=== PATIENT | female | born 1970 | race Two or more races ===

== ENCOUNTER 2021-04-21 20:53 | Emergency (ER) | payer OTHER ==
[~2021-04-21] VITALS: Ht 160 cm; Wt 100.2 kg
[2021-04-21] MEDS ORDERED: IOHEXOL 300MG/ML 100 ML INFUS..BTL IV ONE (21:07)
[2021-04-21 22:00] LABS: *BILIRUBIN,URIN NEGATIVE (NEGATIVE); *BLOOD, URINE 2+ (NEGATIVE); *CLARITY,URINE SLIGHTLY CLOUDY (CLEAR); *COLOR,URINE YELLOW (YELLOW); *KETONES,URINE NEGATIVE (NEGATIVE); *URINE HCG, QUAL NEGATIVE (NEGATIVE); *UROBILINOGEN,URINE 0.2 E.U./dl (NORMAL); LEUKOCYTE ESTERASE ,URINE TRACE (NEGATIVE); NITRITE, URINE NEGATIVE (NEGATIVE); PH,URINE 6.5 (5.0-8.0); UGLUCOSE NEGATIVE (NEGATIVE)
[2021-04-21] MEDS ORDERED: HYDROMORPHONE 1 MG/1 ML DISP.SYRIN IV ONE (22:00)
[2021-04-21] MEDS ORDERED: ONDANSETRON 4 MG/2 ML VIAL IV ONE (22:00)
[2021-04-21 22:07] LABS: BACTERIA,URINE NONE SEEN /HPF (NONE SEEN); CYSTINE CRYSTALS,URINE FEW /HPF (NONE SEEN); SQUAMOUS EPITHELIAL CELL,UR MODERATE /HPF (NONE SEEN); URINE AMORPHOUS URATE FEW /HPF
[2021-04-21 22:16] LABS: HEMATOCRIT 36.8 % (31.2-41.9); MEAN CORPUSCULAR HEMOGLOBIN 28.1 uug (24.7-32.8); MEAN CORPUSCULAR VOLUME 84.7 fL (75.5-95.3); PLATELET COUNT (AUTO) 284 K/uL (179-408)
[2021-04-21 22:17] LABS: CREATININE 0.9 mg/dL (0.6-1.3); POTASSIUM 3.8 mmol/L (3.5-5.1)
[2021-04-21 22:27] LABS: BILIRUBIN,DIRECT 0.1 mg/dL (0.0-0.2); BILIRUBIN,TOTAL 0.2 mg/dL (0.2-1.0)
[2021-04-21] MEDS ORDERED: SWABABLE VALVE TRANSFER SET EA MC ONE (23:03)
[2021-04-21] MEDS ORDERED: IV NORMAL SALINE 250 ML IV ONE (23:03)
[2021-04-21] MEDS ORDERED: ONDANSETRON 4 MG/2 ML VIAL ONE (23:36)
[2021-04-21] MEDS ORDERED: HYDROMORPHONE 1 MG/1 ML DISP.SYRIN ONE (23:37)
[2021-04-22] MEDS ORDERED: levoFLOXacin 750 MG/D5W 150 ML PIGGYBACK IV ONE (01:00)
[2021-04-22] MEDS ORDERED: METRONIDAZOLE 500 MG/NS 100 ML PIGGYBACK IV ONE (01:00)
[2021-04-22] MEDS ORDERED: ACET-73 PO (01:08)
--- NOTE | 2021-04-22 01:20 | NUR ---
Spoke with Brenda, supportive employment case manager [facility], pt to be transferred, faxed clinicals and facesheet to [employer].
[2021-04-22] MEDS ORDERED: METRONIDAZOLE 500 MG/NS 100ML 100 ML IV ONE (01:40)
[2021-04-22] MEDS ORDERED: levoFLOXacin 750MG/D5W 150 ML IV ONE (02:50)
[2021-04-22] MEDS ORDERED: HYDROMORPHONE 1 MG/1 ML DISP.SYRIN ONE (04:04)
--- NOTE | 2021-04-22 04:27 | NUR ---
Received call back from Mabel case management social worker, [facility]. Patient is going to Room 421, number for report is , Accepting is Dr. Harrison.
[2021-04-22] MEDS ORDERED: HYDROMORPHONE 1 MG/1 ML DISP.SYRIN IV ONE (04:45)
--- NOTE | 2021-04-22 05:00 | NUR ---
EDMD Dr. Brown gave verbal order to give the other 0.5mg of the 1mg Dilaudid suringe that was left over from the 0.5mg Dilaudid order from 0404. I acknowledged and obliged. The other 0.5mg of the 1mg Dilaudid suringe was given at approx 0500, pt tolerated well. No reactions noted. No s/sx of distress noted. VSS, PE WNL, oxygenating and perfusing well. Will follow up with Dr. Brown regarding verbal order of 0.5mg Dilaudid.
--- NOTE | 2021-04-22 07:48 | NUR ---
Report Ousmane RN A,A,oriented to time ,place ,person LLQ abd pain mild to palp.Denies Nausea,flatus,AGUIRRE. Last intake 04/21 1800, BM soft form brown yesterday.Aware of transfer,belonging inventory completed withe patient copy given. BP 144/78,P-90,R-20 oral temp 97.8
--- NOTE | 2021-04-22 08:56 | NUR ---
Ambulatory to BR void clear,gait steady,requesting "breakfast" ED MD recomend ice chips. Call [facility] service [phone], ETA 09:45 per welt edge rounder.
--- NOTE | 2021-04-22 10:56 | NUR ---
[facility] # [id number] Report to Nik. Patient to [facility] room 421,full code.Allergy to PCN. Awake, alert, oriented x4, states "feeling better" tolerating ice chips well.BRP x 2 void normal per patient LAC#20 SL site clear.All personel belongings with patient. Call [facility] spoke to Chase OCONNOR.Chart, test,CD copy with patient.
== END 2021-04-22 11:00 | disposition short-term general hospital (02) ==
LOC: ER 21:06
DX: K57.20 Diverticulitis of large intestine with perforation and abscess without bleeding (principal); Z88.0 Allergy status to penicillin; Z90.49 Acquired absence of other specified parts of digestive tract; R03.0 Elevated blood-pressure reading, without diagnosis of hypertension; Z20.822 Contact with and (suspected) exposure to COVID-19
CPT/HCPCS: 36415; 74177; 80048; 80076; 81001; 83690; 84703; 85025; 87426; 96375; 96376; 99285; J1170 ×2; J1956; J2405; J3490; Q9967; A4663; J7050